=== PATIENT | male | born 1975 | race African-American/Black ===

== ENCOUNTER 2017-08-31 09:51 | Emergency (ER) | payer OTHER ==
[2017-08-31 09:57] VITALS: BP 148/84; PULSE 79; TEMP 98.9; BMI 32.8
[2017-08-31] MEDS ORDERED: ALBUTEROL SO4 2.5/IPRATROPIUM 0.5 INH SOL 3 ML VIAL.NEB. NEB ONE ×2 (10:45→10:49)
--- NOTE | 2017-08-31 10:49 | PDOC ---
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 Has taken an aspirin, but no other medications. Has not sought medical attention for these complaints. States has had a Proventil pump in the past but has never been diagnosed with asthma, had an episode of SVT in the spring and thinks may have been related to diet and over stimulants and alcohol but was never given definite diagnosis. Is not taking any medications but has been talked about antihypertensive. One cigarette daily but denies any other drug use besides alcohol and that is not a regular Timing/Duration: reports: changing over time, intermittent Severity: reports: mild Associated Symptoms: reports: chest pain/soreness (to left shoulder and upper arm/ deltoid area- worse with movement and reproducable ). denies: facial pain , fever/chills, nasal drainage Past History - Travel Traveled outside of the country in the last 30 days: No Close contact w/someone who was outside of country & ill: No - Past Medical History Allergies/Adverse Reactions: Allergies Allergy/AdvReac Type Severity Reaction Status Date / Time codeine Allergy Verified 08/31/17 09:57 Home Medications: Ambulatory Orders Aspirin [ASA -] 81 mg PO DAILY #30 tab.chew 03/21/16 Diltiazem Cd [Cardizem Cd -] 120 mg PO DAILY #30 cap.cd.24h 03/21/16 Albuterol 0.083% Nebulizer Sylvia [Ventolin 0.083% Nebulizer Soln -] 1 neb NEB Q4H PRN #30 vial 08/31/17 Azithromycin [Zithromax -] 250 mg PO UTDICT #6 tab 08/31/17 Cardiac Disorders: Yes (SVT) Hypercholesterolemia: (BORDERLINE) - Surgical History Abdominal Surgery: Yes (INTESTINE SX) - Immunization History Immunization Up to Date: Yes - Suicide/Smoking/Psychosocial Hx Smoking History: Current some day smoker Have you smoked in the past 12 months: Yes Number of Cigarettes Smoked Daily: 1 Information on smoking cessation initiated: No 'Breaking Loose' booklet given: 03/21/16 Hx Alcohol Use: Yes (OCCASIONALLY) Drug/Substance Use Hx: No Respiratory Specific PMHX - Complaint Specific PMHX Bronchitis: No Pneumonia: No Review of Systems - Review of Systems Able to Perform ROS?: Yes Is the patient limited Iranian proficient: Yes Constitutional: Yes: Symptoms Reported, See HPI, Chills, Fever, Loss of Appetite , Malaise HEENTM: Yes: See HPI. No: Symptoms Reported Respiratory: Yes: Symptoms reported, See HPI, Cough, Wheezing Cardiac (ROS): No: Symptoms Reported ABD/GI: No: Symptoms Reported Musculoskeletal: Yes: See HPI, Joint Pain, Muscle Pain (left deltoid/ shoulder capsule ). No: Symptoms Reported Integumentary: Yes: Symptoms Reported, See HPI Neurological: Yes: See HPI. No: Symptoms reported All Other Systems: Reviewed and Negative *Physical Exam - Vital Signs Last Vital Signs Temp Pulse Resp BP Pulse Ox 98.9 F 79 18 148/84 98 08/31/17 09:53 08/31/17 09:53 08/31/17 09:53 08/31/17 09:53 08/31/17 09:53 - Physical Exam General Appearance: Yes: Nourished, Appropriately Dressed, Apparent Distress, Mild Distress HEENT: positive: BUFFY, Normal ENT Inspection, TMs Normal, Pharynx Normal ( whitish posterior sinus drainage, no redness or exudate noted to the tonsils), Rhinorrhea Neck: positive: Tender, Supple. negative: Lymphadenopathy (R), Lymphadenopathy (L) Respiratory/Chest: positive: Lungs Clear, Normal Breath Sounds, Wheezing. negative: Rales Cardiovascular: positive: Regular Rate Gastrointestinal/Abdominal: positive: Tender, Soft Musculoskeletal: positive: Normal Inspection. 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 However patient is a smoker therefore will treat bronchial cough with Zithromax and have follow-up with PMD this week. Also will treat musculoskeletal pain with NSAIDs and explained that multiple symptoms are associated with bronchitis , and after treatment of antibiotic if pain persists or worsens to return to emergency department follow-up with PMD *DC/Admit/Observation/Transfer Diagnosis at time of Disposition: Bronchitis - Discharge Dispostion Disposition: HOME Condition at time of disposition: Stable Admit: No - Prescriptions Prescriptions: Albuterol 0.083% Nebulizer Sylvia [Ventolin 0.083% Nebulizer Soln -] 1 neb NEB Q4H PRN #30 vial PRN Reason: Cough Azithromycin [Zithromax -] 250 mg PO UTDICT #6 tab - Referrals Referrals: Elizabeth Hughes MD [Primary Care Provider] - - Patient Instructions Printed Discharge Instructions: DI for Acute Bronchitis Additional Instructions: Rest, drink lots of fluids: Teas, water, soups, Pedialyte Saltwater gargles Steamy showers/seem to face break up mucus Avoid contact with others until fevers and cough resolved Lots of handwashing and good hygiene No smoking until cough is finished Continue [id number] medications for symptomatic relief Tylenol or Motrin for fever and pain Avoid heavy lifting and strenuous activity until shoulder and arm feels better Continue albuterol nebulizers every 4-6 hours for the next 2 days then as needed for continued cough Zithromax as directed Followup with private physician in one to 2 days as needed Call and make appointment with private physician for thorough physical exam and evaluation of blood pressure and other basic healthcare Return to emergency department for worsened symptoms, fevers, dehydration - Post Discharge Activity Forms/Work/School Notes: Back to Work
[2017-08-31] MEDS ORDERED: IBUPROFEN 600 MG TABLET (FP) PO ONE ×2 (11:49→12:01)
== END 2017-08-31 12:23 | disposition home or self-care (01) ==
LOC: JER 09:51 → JERFT 09:51
PROC: 3E0F7GC Introduction of Other Therapeutic Substance into Respiratory Tract, Via Natural or Artificial Opening (ICD-10-PCS; principal; 2017-08-31)
DX: J20.9 Acute bronchitis, unspecified (principal); F17.210 Nicotine dependence, cigarettes, uncomplicated; Z88.6 Allergy status to analgesic agent; Z79.82 Long term (current) use of aspirin
CPT/HCPCS: 71020-TC; 99281-25

== ENCOUNTER 2018-11-27 06:08 | Emergency (ER) | payer OTHER ==
--- NOTE | 2018-11-27 06:24 | PDOC ---
History of Present Illness - General Stated Complaint: VOMITING Time Seen by Provider: 11/27/18 06:24 History Source: Patient Exam Limitations: No Limitations - History of Present Illness Initial Comments: 11/27/18 06:26 43 year old male with PMH previous atrial fibrillation, pancreatitis secondary to ETOH presented to ED for fever 102F associated with body aches, clear productive cough, chest tightness with inspiration, nausea, vomiting. Positive sick contacts with similar symptoms. Pt stated last drink was x5 days ago. Pt denied every day drinking. Past History - Past Medical History Allergies/Adverse Reactions: Allergies Allergy/AdvReac Type Severity Reaction Status Date / Time codeine Allergy Verified 11/27/18 06:40 Cardiac Disorders: Yes (SVT, afib?) COPD: No Hypercholesterolemia: (BORDERLINE) - Surgical History Abdominal Surgery: Yes (INTESTINE SX) - Immunization History Immunization Up to Date: Yes - Suicide/Smoking/Psychosocial Hx Smoking History: Former smoker Have you smoked in the past 12 months: Yes Number of Cigarettes Smoked Daily: 1 'Breaking Loose' booklet given: 03/21/16 Hx Alcohol Use: Yes (OCCASIONALLY) Drug/Substance Use Hx: No Review of Systems - Review of Systems Able to Perform ROS?: Yes Comments:: 11/27/18 06:27 General: admitted to fever, chills, generalized weakness. HEENT: denied sore throat, rhinorrhea, ear pain. Heart: admitted to pleuritic chest pain. denied palpitations, syncope, lower extremity swelling, diaphoresis. Respiratory: cough, sputum production. denied shortness of breath, hemoptysis. Abdomen: admitted to nausea, vomiting. denied abdominal pain, diarrhea, constipation, blood in stool. : denied dysuria, increased urinary frequency, hematuria, urinary incontinence , flank pain. Back: denied back pain. Musculoskeletal: admitted to body aches. denied joint pain, joint swelling. Neurological: admitted to headache. denied dizziness, numbness, tingling, weakness. Skin: denied rash, laceration, abrasion. *Physical Exam - Physical Exam Comments: 11/27/18 06:29 Constitutional: Well-nourished, Well-developed, appearing stated age. HEENT: head is normocephalic, atraumatic. EOMI. PERRLA. Neck: supple. Full ROM. Heart: regular rhythm. no murmurs, rubs or gallops. Lungs: clear to auscultation bilaterally. no crackles, rhonchi or wheezing. no stridor. Abdomen: soft, nontender. normal bowel sounds. no rebound, guarding, masses. Extremities: Peripheral pulses intact. No lower extremity edema. Neurological: CN 2-12 grossly intact. Moves all four extremities. Psych: awake, alert, oriented x3. Follows commands. Answers questions appropriately. ED Treatment Course - LABORATORY CBC & Chemistry Diagram: 11/27/18 07:10 11/27/18 07:10 Medical Decision Making - Medical Decision Making 11/27/18 06:29 43 year old male with PMH previous atrial fibrillation, pancreatitis secondary to ETOH presented to ED for fever 102F associated with body aches, clear productive cough, chest tightness with inspiration, nausea, vomiting. Initial Vital Signs Temp Pulse Resp BP Pulse Ox 99.9 F H 85 20 124/65 96 11/27/18 06:37 11/27/18 06:37 11/27/18 06:37 11/27/18 06:37 11/27/18 06:37 Febrile. No tachycardia. No tachypnea. Normal bood pressure. No hypoxia on room air. Labs ordered: CBC, CMP, influenza Imaging ordered: CXR Medications ordered: tylenol, zofran, pepcid, normal saline 1000 cc bolus EKG performed at 0634: rate 87, regular rhythm, normal axis, normal intervals, nonspecific ST changes. 11/27/18 07:10 Pt signed out to Dr. Andersen. *DC/Admit/Observation/Transfer Diagnosis at time of Disposition: Viral syndrome - Discharge Dispostion Disposition: HOME Condition at time of disposition: Good - Referrals Referrals: Elizabeth Hughes MD [Primary Care Provider] - - Patient Instructions Printed Discharge Instructions: DI for Viral Upper Respiratory Infection -- Adult Additional Instructions: You were seen in the ER today for fever, cough, and vomiting. The results of your labs and imaging today were normal. Please follow-up with your primary care doctor within 1-2 days to discuss your visit and make sure your symptoms have improved. Please return to the ER if you have any worsening pain, development of fevers or chills, loss of consciousness, inability to tolerate food or fluids, or any other concerns. - Post Discharge Activity
[2018-11-27] MEDS ORDERED: FAMOTIDINE 20 MG/50 ML IVPB 20 MG/50 ML MG IVPB ONE (06:25)
[2018-11-27] MEDS ORDERED: ONDANSETRON 4 MG/2 ML VIAL IVPUSH ONE (06:25)
[2018-11-27] MEDS ORDERED: SODIUM CHLORIDE 1,000 ML IV STA (06:25)
[2018-11-27] MEDS ORDERED: ACETAMINOPHEN 1000 MG/100 ML VIAL (NON FORMULARY) IVPB ONE (06:25)
[2018-11-27 06:39] VITALS: TEMP 99.9; BMI 67.6
--- NOTE | 2018-11-27 06:57 | PDOC ---
Attending Attestation - Resident Resident Name: Guerline Roman - ED Attending Attestation I have performed the following: I have examined & evaluated the patient, The case was reviewed & discussed with the resident, I agree w/resident's findings & plan, Exceptions are as noted - HPI HPI: 11/27/18 06:53 43M here with several days of fevers measured to 102 Tmax, chills, productive cough, n/v nbnb, several episodes of watery stool. +sick contacts at home - Physicial Exam PE: 11/27/18 06:55 Patient appears very uncomfortable on initial exam, AOx3 NCAT, PERRL Neck supple LCTAB Abd soft, diffusely tender, no guarding, no rebound CARL - Medical Decision Making 11/27/18 06:56 Likely viral syndrome, consider pna, AGE f/u labs symptomatic tx re-eval
--- NOTE | 2018-11-27 07:12 | PDOC ---
*Physical Exam - Vital Signs Last Vital Signs Temp Pulse Resp BP Pulse Ox 99.9 F H 85 20 124/65 96 11/27/18 06:37 11/27/18 06:37 11/27/18 06:37 11/27/18 06:37 11/27/18 06:37 ED Treatment Course - LABORATORY CBC & Chemistry Diagram: 11/27/18 07:10 11/27/18 07:10 Medical Decision Making - Medical Decision Making Pt was signed out to me by resident Dr. Roman, who explained the presentation, ED course, any pending results, and needed interventions. Pending results include labs and chest x-ray. Pt is currently receiving fluids and is lying comfortably. 11/27/18 07:24 CBC: no increased WBC, neutrophilic predominance. 11/27/18 07:55 CMP and lipase WNL. Pt will be sent for chest x-ray. 11/27/18 08:20 Influenza negative. Pending x-ray. 11/27/18 08:33 Chest x-ray shows no acute pathology. Considering normal lab results and imaging, pt can be discharged to home with follow-up. Pt advised to follow-up with PCP in 1-2 days. Strict return precautions provided with pt understanding. 11/27/18 08:49 *DC/Admit/Observation/Transfer Diagnosis at time of Disposition: Viral syndrome - Discharge Dispostion Disposition: HOME Condition at time of disposition: Good Decision to Admit order: No - Referrals Referrals: Elizabeth Hughes MD [Primary Care Provider] - - Patient Instructions Printed Discharge Instructions: DI for Viral Upper Respiratory Infection -- Adult Additional Instructions: You were seen in the ER today for fever, cough, and vomiting. The results of your labs and imaging today were normal. Please follow-up with your primary care doctor within 1-2 days to discuss your visit and make sure your symptoms have improved. Please return to the ER if you have any worsening pain, development of fevers or chills, loss of consciousness, inability to tolerate food or fluids, or any other concerns. - Post Discharge Activity
[2018-11-27 07:43] LABS: BASO % 0.2 % (0-2.0); EOS % 0.1 % (0-4.5); HEMATOCRIT 39.5 % (35.4-49); HEMOGLOBIN 12.9 GM/dL (11.7-16.9); LYMPH % 4.8 % (8-40); MCH 28.4 pg (25.7-33.7); MCHC 32.7 g/dl (32.0-35.9); MEAN PLT VOLUME 9.7 fl (7.5-11.1); NEUT % 85.9 % (42.8-82.8); PLATELET COUNT 204 K/MM3 (134-434); RBC 4.54 M/mm3 (4.00-5.60); RDW 12.7 % (11.9-15.9); WHITE BLOOD COUNT 5.3 K/mm3 (4.0-10.0)
[2018-11-27 08:02] LABS: ALBUMIN 4.2 g/dl (3.4-5.0); ALK PHOS 110 U/L (45-117); ANION GAP 7 MMOL/L (8-16); BILIRUBIN,TOTAL 0.3 mg/dL (0.2-1); BLOOD UREA NITROGEN 14 mg/dL (7-18); CALCIUM 8.8 mg/dL (8.5-10.1); CHLORIDE 103 mmol/L (98-107); CO2 26 mmol/L (21-32); CREATININE 1.1 mg/dL (0.55-1.3); GLUCOSE,RANDOM 105 mg/dL (74-106); LIPASE 127 U/L (73-393); SGOT/AST 26 U/L (15-37); SGPT/ALT 29 U/L (13-61); SODIUM 137 mmol/L (136-145); TOT PROT 7.6 g/dl (6.4-8.2)
[2018-11-27 09:09] VITALS: BP 122/75; PULSE 65
--- NOTE | 2018-11-27 09:09 | EKG ---
Test Reason : Blood Pressure : / mmHG Vent. Rate : 087 BPM Atrial Rate : 087 BPM P-R Int : 148 ms QRS Dur : 086 ms QT Int : 358 ms P-R-T Axes : 062 050 016 degrees QTc Int : 430 ms POOR DATA QUALITY, INTERPRETATION MAY BE ADVERSELY AFFECTED NORMAL SINUS RHYTHM NONSPECIFIC ST AND T WAVE ABNORMALITY ABNORMAL ECG WHEN COMPARED WITH ECG OF 29-JUN-2018 11:58, NONSPECIFIC T WAVE ABNORMALITY NOW EVIDENT IN ANTEROLATERAL LEADS Confirmed by THIEN SIMPSON, ALYCIA ([id number]) on 11/27/2018 9:09:12 AM Referred By: Confirmed By:ALYCIA NEUMANN MD
== END 2018-11-27 09:09 | disposition home or self-care (01) ==
LOC: JER 06:08
PROC: 3E033GC Introduction of Other Therapeutic Substance into Peripheral Vein, Percutaneous Approach (ICD-10-PCS; principal; 2018-11-27)
PROC: 3E033GC Introduction of Other Therapeutic Substance into Peripheral Vein, Percutaneous Approach (ICD-10-PCS; 2018-11-27)
PROC: 3E033NZ Introduction of Analgesics, Hypnotics, Sedatives into Peripheral Vein, Percutaneous Approach (ICD-10-PCS; 2018-11-27)
DX: B34.9 Viral infection, unspecified (principal)
CPT/HCPCS: 36415; 71046-TC-FY; 80053; 83690; 85025; 87804; 93005; 93010; 96365; 96375; 99282-25; J0131; J7030

== ENCOUNTER 2018-11-28 16:57 | Emergency (ER) | payer OTHER ==
[2018-11-28 17:09] VITALS: BMI 30.7
--- NOTE | 2018-11-28 17:47 | PDOC ---
History of Present Illness - History of Present Illness Initial Comments: The patient is a 43 year old male, with a significant past medical history of previous atrial fibrillation, pancreatitis secondary to ETOH, who presents to the emergency department with 3 days of flu-like symptoms. Patient states that he has been experiencing nausea, vomiting, diarrhea, generalized weakness, productive cough (clear sputum), and hot flashes & cold sweats. He states that he hasnt been able to hold anything down including liquids. He also reports associated dizziness and confusion. He complains of a headache that he says has lasts for months. He denies any recent chest pain or shortness of breath. He denies any recent dysuria, frequency, urgency or hematuria. Allergies: codeine Social History: Some day smoker. Social EtOH use. Denies recreational drug use. Primary Care Physician: Elizabeth Hughes 11/28/18 18:12 <Carmen Lorenzo - Last Filed: 11/28/18 18:20> <Tyrel Vernon - Last Filed: 11/28/18 19:59> - General Chief Complaint: Nausea/Vomiting Stated Complaint: HEADACHE, FEVER, VOMITING Time Seen by Provider: 11/28/18 17:26 Past History <Carmen Lorenzo - Last Filed: 11/28/18 18:20> - Past Medical History Cardiac Disorders: Yes (SVT, afib?) COPD: No Hypercholesterolemia: (BORDERLINE) - Surgical History Abdominal Surgery: Yes (INTESTINE SX) - Immunization History Immunization Up to Date: Yes - Suicide/Smoking/Psychosocial Hx Smoking History: Current some day smoker Have you smoked in the past 12 months: Yes Number of Cigarettes Smoked Daily: 1 Information on smoking cessation initiated: No 'Breaking Loose' booklet given: 03/21/16 Hx Alcohol Use: Yes (SOCIALLY) Drug/Substance Use Hx: No <Tyrel Vernon - Last Filed: 11/28/18 19:59> - Past Medical History Allergies/Adverse Reactions: Allergies Allergy/AdvReac Type Severity Reaction Status Date / Time codeine Allergy Verified 11/28/18 17:03 Home Medications: Ambulatory Orders Ondansetron [Zofran Odt -] 4 mg SL TID #21 od.tablet 11/28/18 Review of Systems - Review of Systems Comments:: Constitutional: +chills ENT: no sore throat Cardiovascular: no palpitations; no chest pain Pulmonary: + productive cough (clear sputum); no trouble breathing Gastrointestinal: + nausea; + vomiting; + diarrhea Genitourinary: No urinary problems; no hematuria Skin: No rash Lymph system: No swollen glands Musculoskeletal: No joint swelling Neurological: + generalized weakness; No numbness; +Headache; no vertigo; + lightheadedness Psychiatric:No anxiety; no depression <Carmen Lorenzo - Last Filed: 11/28/18 18:20> *Physical Exam - Vital Signs Last Vital Signs Temp Pulse Resp BP Pulse Ox 98.1 F 79 18 117/80 98 11/28/18 17:05 11/28/18 17:05 11/28/18 17:05 11/28/18 17:05 11/28/18 17:05 - Physical Exam Comments: Vitals: Triage Vital signs reviewed General Appearance: + uncomfortable appearing. well nourished well developed Head: Atraumatic Eyes: Pupils equal reactive round, extraocular movement intact Ears: TMs normal bilaterally Nose: Nares patent bilaterally; no nasal congestion Throat: Posterior oropharynx without erythema, mucous membranes moist Neck: Supple; No Nuchal rigidity Chest Wall: Nontender Cardiac: Regular rate and rhythm, no murmurs, no rubs, no gallops Lungs: Clear to auscultation bilateral, good air movement bilaterally Abdomen: Soft, non distended, normal bowel sounds, non tender to palpation Extremities: Full range of motion to all extremities, no cyanosis, clubbing, or edema Skin: Warm and dry, no rashes or lesions, no rash, no petechiae Neuro: AOX3; Cranial Nerves 2-12 grossly intact, Strength intact to all extremities, Sensation intact to all extremities, gait normal Psych: Normal mood, normal affect 11/28/18 18:22 <Carmen Lorenzo - Last Filed: 11/28/18 18:20> - Vital Signs Last Vital Signs Temp Pulse Resp BP Pulse Ox 98.1 F 79 18 117/80 98 11/28/18 17:05 11/28/18 17:05 11/28/18 17:05 11/28/18 17:05 11/28/18 17:05 <Tyrel Vernon - Last Filed: 11/28/18 19:59> Moderate Sedation - Procedure Monitoring Vital Signs: Procedure Monitoring Vital Signs Temperature 98.1 F 11/28/18 17:05 Pulse Rate 79 11/28/18 17:05 Respiratory Rate 18 11/28/18 17:05 Blood Pressure 117/80 11/28/18 17:05 O2 Sat by Pulse Oximetry (%) 98 11/28/18 17:05 <Carmen Lorenzo - Last Filed: 11/28/18 18:20> - Procedure Monitoring Vital Signs: Procedure Monitoring Vital Signs Temperature 98.1 F 11/28/18 17:05 Pulse Rate 79 11/28/18 17:05 Respiratory Rate 18 11/28/18 17:05 Blood Pressure 117/80 11/28/18 17:05 O2 Sat by Pulse Oximetry (%) 98 11/28/18 17:05 <Tyrel Vernon - Last Filed: 11/28/18 19:59> ED Treatment Course - LABORATORY CBC & Chemistry Diagram: 11/28/18 18:30 11/28/18 18:30 <Tyrel Vernon - Last Filed: 11/28/18 19:59> Medical Decision Making - Medical Decision Making 11/28/18 19:58 Reevaluation patient feels much better now tolerating fluids repeat abdominal exam benign Laboratory analysis reviewed there are no gross abnormalities History examination given three-day history of nausea vomiting and diarrhea is most consistent with gastritis at this time He is negative for influenza He will be sent prescribed a prescription for Zofran 24 hours of fluids only medical progress to small amounts of food He will follow up with his doctor this week. Findings, need follow-up and strict return instructions discussed patient. <Tyrel Vernon - Last Filed: 11/28/18 19:59> *DC/Admit/Observation/Transfer - Attestations Scribe Attestion: 11/28/18 18:21 Documentation prepared by Carmen Lorenzo, acting as medical records coder for Tyrel Vernon MD. <Carmen Lorenzo - Last Filed: 11/28/18 18:20> - Discharge Dispostion Decision to Admit order: No <Tyrel Vernon - Last Filed: 11/28/18 19:59> Diagnosis at time of Disposition: Gastroenteritis - Discharge Dispostion Disposition: HOME - Referrals Referrals: Elizabeth Hughes MD [Primary Care Provider] - - Patient Instructions Printed Discharge Instructions: DI for Nausea -- Adult, DI for Vomiting -- Adult Additional Instructions: Alternate Tylenol and Motrin as directed on package as in for fever. Drink plenty of fluids. Zofran as prescribed. Return to the emergency department unable to tolerate fluids any severe abdominal pain or for any concerns. Follow- up with your doctor next week. - Post Discharge Activity
[2018-11-28] MEDS ORDERED: SODIUM CHLORIDE 0.9% 1000 ML INFUS.BAG IV ONE (18:01)
[2018-11-28] MEDS ORDERED: ONDANSETRON 4 MG/2 ML VIAL IVPUSH ONE (18:01)
[2018-11-28] MEDS ORDERED: ACETAMINOPHEN 1000 MG/100 ML VIAL (NON FORMULARY) IVPB ONE (18:01)
[2018-11-28] MEDS ORDERED: METOCLOPRAMIDE HCL INJECTION 10 MG/2 ML VIAL IVPB ONE (18:01)
[2018-11-28] MEDS ORDERED: ACETAMINOPHEN INJECTION 100 ML IVPB ONE (18:06)
[2018-11-28] MEDS ORDERED: METOCLOPRAMIDE HCL INJECTION 10 MG/2 ML VIAL ONE (18:06)
[2018-11-28] MEDS ORDERED: ONDANSETRON 4 MG/2 ML VIAL ONE (18:06)
[2018-11-28 18:36] LABS: BASO % 0.3 % (0-2.0); HEMOGLOBIN 13.2 GM/dL (11.7-16.9); LYMPH % 13.5 % (8-40); MCH 29.7 pg (25.7-33.7); MCHC 34.8 g/dl (32.0-35.9); MEAN CELL VOLUME 85.2 fl (80-96); MEAN PLT VOLUME 9.7 fl (7.5-11.1); MONO % 7.3 % (3.8-10.2); NEUT % 78.9 % (42.8-82.8); PLATELET COUNT 178 K/MM3 (134-434); RBC 4.46 M/mm3 (4.00-5.60); RDW 12.6 % (11.9-15.9); WHITE BLOOD COUNT 3.9 K/mm3 (4.0-10.0)
[2018-11-28 19:06] LABS: ALBUMIN 3.6 g/dl (3.4-5.0); ALK PHOS 98 U/L (45-117); ANION GAP 7 MMOL/L (8-16); BILIRUBIN,TOTAL 0.4 mg/dL (0.2-1); BLOOD UREA NITROGEN 12 mg/dL (7-18); CHLORIDE 98 mmol/L (98-107); CO2 27 mmol/L (21-32); GLUCOSE,RANDOM 103 mg/dL (74-106); POTASSIUM 3.8 mmol/L (3.5-5.1); SGOT/AST 40 U/L (15-37); SGPT/ALT 35 U/L (13-61); SODIUM 132 mmol/L (136-145)
[2018-11-28 19:29] VITALS: BP 118/63; PULSE 74; TEMP 99.9
== END 2018-11-28 20:25 | disposition home or self-care (01) ==
LOC: JER 16:57
PROC: 3E033NZ Introduction of Analgesics, Hypnotics, Sedatives into Peripheral Vein, Percutaneous Approach (ICD-10-PCS; principal; 2018-11-28)
PROC: 3E033GC Introduction of Other Therapeutic Substance into Peripheral Vein, Percutaneous Approach (ICD-10-PCS; 2018-11-28)
PROC: 3E033GC Introduction of Other Therapeutic Substance into Peripheral Vein, Percutaneous Approach (ICD-10-PCS; 2018-11-28)
PROC: 3E033GC Introduction of Other Therapeutic Substance into Peripheral Vein, Percutaneous Approach (ICD-10-PCS; 2018-11-28)
DX: K52.9 Noninfective gastroenteritis and colitis, unspecified (principal)
CPT/HCPCS: 36415; 80053; 85025; 87804; 96374; 96375; 99282-25; J0131; J7030

== ENCOUNTER 2021-03-16 04:14 | Day surgery (SDC) | payer OTHER ==
[2021-03-15 13:25] VITALS: BMI 34.2
[2021-03-16] MEDS ORDERED: DEXAMETHASONE SOD PHOSPHATE/PF 10 MG/ML SDV ONE (07:28)
[2021-03-16] MEDS ORDERED: LIDOCAINE 1% P/F 10 MG/ML VIAL INF ONE (13:52)
[2021-03-16] MEDS ORDERED: IOHEXOL 180 MG/1 ML ML IJ ONE (13:54)
[2021-03-16] MEDS ORDERED: DEXAMETHASONE SOD PHOSPHATE 10 MG/1 ML VIAL IM ONE (13:56)
[2021-03-16 14:37] VITALS: BP 132/82; PULSE 80; TEMP 98.2
== END 2021-03-16 14:45 | disposition home or self-care (01) ==
LOC: JASU-SURG 04:14
PROVIDERS: ATTEND Pain Medicine Pain Medicine
PROC: B01BYZZ Fluoroscopy of Spinal Cord using Other Contrast (ICD-10-PCS; 2021-03-16)
PROC: 3E0R33Z Introduction of Anti-inflammatory into Spinal Canal, Percutaneous Approach (ICD-10-PCS; principal; 2021-03-16 13:30)
DX: M54.12 Radiculopathy, cervical region (principal)
CPT/HCPCS: 76000-TC-FY; J1100

== ENCOUNTER 2021-04-11 10:54 | Day surgery (SDC) | payer OTHER ==
[2021-04-11] MEDS ORDERED: BUPIVACAINE HCL/PF 2.5 MG/ML - 30 ML VIAL IJ ONE (11:10)
[2021-04-11] MEDS ORDERED: BUPIVACAINE HCL/EPINEPHRINE/PF 30 ML VIAL IJ ONE (11:10)
[2021-04-11 11:19] VITALS: BMI 33.9
[2021-04-11] MEDS ORDERED: MIDAZOLAM HCL 2 MG/2 ML SINGLE DOSE VIAL ONE ×2 (11:59)
[2021-04-11] MEDS ORDERED: fentaNYL CITRATE 250 MCG/5 ML VIAL ONE ×2 (11:59→12:22)
[2021-04-11] MEDS ORDERED: PROPOFOL 20 ML ONE ×4 (11:59→12:22)
[2021-04-11] MEDS ORDERED: SUCCINYLCHOLINE CHLORIDE 200 MG/10 ML SYRINGE ONE ×2 (12:02→12:23)
[2021-04-11] MEDS ORDERED: ROCURONIUM BROMIDE 50 MG/5 ML SYRINGE ONE ×2 (12:02→12:23)
[2021-04-11] MEDS ORDERED: ePHEDrine SULFATE 50 MG/1 ML AMPULE ONE (12:48)
[2021-04-11] MEDS ORDERED: HYDROmorphone HCl 2 MG/ML VIAL IVPUSH ONE (16:12)
[2021-04-11] MEDS ORDERED: ONDANSETRON 4 MG/2 ML VIAL IVPUSH PRN (16:12)
[2021-04-11] MEDS ORDERED: oxyCODONE HCL 5 MG TABLET PO PRN ×3 (16:13→16:15)
[2021-04-11] MEDS ORDERED: LACTATED RINGERS SOLUTION 1,000 ML IV SCH (16:15)
[2021-04-11] MEDS ORDERED: ACETAMINOPHEN 325 MG TABLET (FP) PO PRN (16:15)
[2021-04-11] MEDS: CEFAZOLIN 2 GM/D5W 2 GM/50 ML ML IVPB SCH (20:24)
[2021-04-11] MEDS ORDERED: oxyCODONE HCL 10 MG SUSTAINED ACTING TABLET PO SCH (22:00)
[2021-04-12] MEDS: CEFAZOLIN 2 GM/D5W 2 GM/50 ML ML IVPB SCH (01:16)
[2021-04-12 02:23] VITALS: BP 140/76; PULSE 94; TEMP 99.1
== END 2021-04-12 02:15 | disposition home or self-care (01) ==
LOC: FASU 10:54 → FM/S 18:29 → FASU 04-12 02:15
PROVIDERS: ATTEND Orthopaedic Surgery
PROC: 0LQ30ZZ Repair Right Upper Arm Tendon, Open Approach (ICD-10-PCS; principal; 2021-04-11 12:00)
DX: S46.211A Strain of muscle, fascia and tendon of other parts of biceps, right arm, initial encounter (principal); X58.XXXA Exposure to other specified factors, initial encounter; Y92.9 Unspecified place or not applicable; Y93.9 Activity, unspecified
CPT/HCPCS: 76000-TC-FY; 94760

== ENCOUNTER 2021-07-22 11:05 | Emergency (ER) | payer OTHER ==
[2021-07-22] MEDS ORDERED: SODIUM CHLORIDE 0.9% 500 ML INFUS.BAG IV ONE (11:23)
[2021-07-22 11:32] VITALS: BP 135/93; PULSE 79; TEMP 98.9; BMI 33.5
[2021-07-22 12:18] LABS: MEAN PLT VOLUME 9.6 fl (7.5-11.1)
[2021-07-22 12:24] LABS: ALBUMIN 4.4 g/dl (3.4-5.0); BILIRUBIN,TOTAL 0.5 mg/dl (0.2-1); CREATININE 0.9 mg/dl (0.55-1.3); TOT PROT 7.1 g/dl (6.4-8.2)
[2021-07-22 12:26] LABS: BASO % 0.6 % (0-2.0); EOS % 0.2 % (0-4.5); HEMATOCRIT 39.7 % (35.4-49); LYMPH % 19.8 % (8-40); MCH 28.1 pg (25.7-33.7); MCHC 32.7 g/dl (32.0-35.9); MONO % 6.4 % (3.8-10.2); PLATELET COUNT 266 10^3/uL (134-434); RBC 4.62 M/mm3 (4.00-5.60); RDW 12.1 % (11.9-15.9); WHITE BLOOD COUNT 6.1 K/mm3 (4.0-10.8)
== END 2021-07-22 13:55 | disposition home or self-care (01) ==
LOC: FER 11:05
DX: R53.81 Other malaise (principal); M62.82 Rhabdomyolysis
CPT/HCPCS: 36415; 80053; 81003; 82550; 82553; 84443; 84484; 85025; 87086; 93005; 99284-25; C9803; U0003; U0005

== ENCOUNTER 2022-05-29 15:08 | Emergency (ER) | payer OTHER ==
[2022-05-29 15:40] VITALS: BP 126/88; PULSE 92; TEMP 99.1; BMI 34.2
[2022-05-29 16:41] LABS: INR 1.07 (0.83-1.09); PROTHROMBIN TIME (PATIENT) 12.3 SEC (9.7-13.0)
[2022-05-29 16:44] LABS: ACTIVATED PTT 32.9 SECONDS (25.2-36.5)
[2022-05-29 16:54] LABS: BILIRUBIN,TOTAL 0.5 mg/dl (0.2-1); CREATININE 1.2 mg/dl (0.55-1.3)
[2022-05-29 16:59] LABS: HEMATOCRIT 38.8 % (35.4-49); HEMOGLOBIN 13.8 G/dL (11.7-16.9); MCH 30.8 pg (25.7-33.7); MCHC 35.5 g/dl (32.0-35.9); MEAN CELL VOLUME 86.6 fl (80-96); MEAN PLT VOLUME 9.2 fl (7.5-11.1); PLATELET COUNT 221.1 10^3/uL (134-434); RBC 4.48 10^6/uL (4.00-5.60); RDW 13.2 % (11.9-15.9); WHITE BLOOD COUNT 4.3 10^3/uL (4.0-10.8)
[2022-05-29] MEDS ORDERED: KETOROLAC TROMETHAMINE 15 MG/ML VIAL IVPUSH ONE (19:09)
[2022-05-29] MEDS ORDERED: KETOROLAC TROMETHAMINE 15 MG/ML VIAL ONE (19:27)
[2022-05-29 19:44] LABS: PLATELET ESTIMATE ADEQUATE
== END 2022-05-29 20:38 | disposition home or self-care (01) ==
LOC: FER 15:08
PROC: 3E033GC Introduction of Other Therapeutic Substance into Peripheral Vein, Percutaneous Approach (ICD-10-PCS; principal; 2022-05-29)
DX: S29.011A Strain of muscle and tendon of front wall of thorax, initial encounter (principal); Y99.8 Other external cause status
CPT/HCPCS: 36415; 71045-TC-FY; 71275-TC; 80053; 84484; 85025; 85610; 85730; 93005; 93308; 99285-25; Q9967

== ENCOUNTER 2023-12-23 13:01 | Inpatient (IN) | payer OTHER ==
[2023-12-23 13:11] VITALS: BMI 34.8
[2023-12-23] MEDS ORDERED: KETOROLAC TROMETHAMINE 15 MG/ML VIAL IM ONE (13:23)
[2023-12-23] MEDS ORDERED: KETOROLAC TROMETHAMINE 30 MG/1 ML VIAL ONE (13:55)
[2023-12-23] MEDS ORDERED: KETOROLAC TROMETHAMINE 30 MG/1 ML VIAL IVPUSH ONE (13:55)
[2023-12-23 14:51] LABS: PH,URINE 5.5 (5.0-8.0); URINE APPEARANCE CLEAR; URINE BILIRUBIN NEGATIVE (NEGATIVE); URINE COLOR YELLOW; URINE GLUCOSE (UA) NEGATIVE (NEGATIVE); URINE KETONE NEGATIVE (NEGATIVE); URINE LEUK ESTERASE NEGATIVE (NEGATIVE); URINE NITRITE NEGATIVE (NEGATIVE); URINE PROTEIN NEGATIVE (NEGATIVE); URINE UROBILINOGEN 0.2 mg/dL (0.2-1.0)
[2023-12-23 14:52] LABS: BASO % 0.7 % (0-2.0); EOS % 0.4 % (0-4.5); HEMATOCRIT 37.4 % (35.4-49); HEMOGLOBIN 12.3 GM/dL (11.7-16.9); LYMPH % 24.9 % (8-40); MCH 27.8 pg (25.7-33.7); MEAN CELL VOLUME 84.3 fl (80-96); MONO % 7.7 % (3.8-10.2); NEUT % 66.3 % (42.8-82.8); PLATELET COUNT 313 10^3/uL (134-434); RBC 4.44 M/mm3 (4.00-5.60); RDW 13.5 % (11.9-15.9); WHITE BLOOD COUNT 5.1 K/mm3 (4.0-10.0)
[2023-12-23 15:12] LABS: POTASSIUM 4.7 mmol/L (3.5-5.1)
[2023-12-23 15:14] LABS: ALBUMIN 4.1 g/dl (3.4-5.0); CALCIUM 9.2 mg/dL (8.5-10.1)
[2023-12-23 15:15] LABS: BLOOD UREA NITROGEN 14.9 mg/dL (7-18)
[2023-12-23 15:19] LABS: BILIRUBIN,TOTAL 0.5 mg/dL (0.2-1); TOT PROT 7.6 g/dl (6.4-8.2)
[2023-12-23] MEDS ORDERED: ACETAMINOPHEN 1000 MG/100 ML BAG IVPB PRN (18:25)
[2023-12-23] MEDS ORDERED: SODIUM CHLORIDE 1,000 ML IV SCH (18:30)
[2023-12-23] MEDS ORDERED: TAMSULOSIN HCL 0.4 MG CAP PO SCH (22:00)
[2023-12-24 07:22] LABS: POTASSIUM 4.3 mmol/L (3.5-5.1)
[2023-12-24 07:27] LABS: BLOOD UREA NITROGEN 15.8 mg/dL (7-18)
[2023-12-24 07:28] LABS: ALBUMIN 3.7 g/dl (3.4-5.0); BASO % 0.3 % (0-2.0); CALCIUM 8.6 mg/dL (8.5-10.1); EOS % 1.6 % (0-4.5); HEMATOCRIT 37.1 % (35.4-49); HEMOGLOBIN 12.1 GM/dL (11.7-16.9); MAGNESIUM 2.1 mg/dL (1.8-2.4); MCH 27.5 pg (25.7-33.7); MCHC 32.6 g/dl (32.0-35.9); MEAN CELL VOLUME 84.4 fl (80-96); MEAN PLT VOLUME 8.7 fl (7.5-11.1); MONO % 9.9 % (3.8-10.2); NEUT % 51.2 % (42.8-82.8); PLATELET COUNT 267 10^3/uL (134-434); RDW 13.2 % (11.9-15.9); WHITE BLOOD COUNT 3.8 K/mm3 (4.0-10.0)
[2023-12-24 07:30] LABS: PHOSPHOROUS 5.3 mg/dL (2.5-4.9)
[2023-12-24 07:31] LABS: TOT PROT 6.7 g/dl (6.4-8.2)
[2023-12-24 07:32] LABS: BILIRUBIN,TOTAL 0.3 mg/dL (0.2-1)
[2023-12-24] MEDS ORDERED: SUCCINYLCHOLINE CHLORIDE 200 MG/10 ML SYRINGE ONE (08:03)
[2023-12-24] MEDS ORDERED: PROPOFOL 40 ML ONE (08:07)
[2023-12-24] MEDS ORDERED: MIDAZOLAM HCL 2 MG/2 ML SINGLE DOSE VIAL ONE (08:21)
[2023-12-24] MEDS ORDERED: ONDANSETRON 4 MG/2 ML VIAL ONE (08:23)
[2023-12-24] MEDS ORDERED: ceFAZolin SODIUM 1 GM VIAL ONE (08:23)
[2023-12-24] MEDS ORDERED: LIDOCAINE HCL/PF 2% SDV 5ML VIAL ONE (08:23)
[2023-12-24] MEDS ORDERED: DEXAMETHASONE SOD PHOSPHATE 4 MG/1 ML VIAL ONE (08:23)
[2023-12-24] MEDS ORDERED: SODIUM CHLORIDE 0.9% P/F 10 ML VIAL IJ ONE (08:23)
[2023-12-24] MEDS ORDERED: ceFAZolin SODIUM 1 GM VIAL IVPB ONE ×2 (08:26)
[2023-12-24] MEDS ORDERED: TAMSULOSIN HCL 0.4 MG CAP PO SCH (08:30)
[2023-12-24] MEDS ORDERED: ACETAMINOPHEN INJECTION 100 ML IVPB ONE (08:37)
[2023-12-24] MEDS ORDERED: ONDANSETRON 4 MG/2 ML VIAL IVPUSH PRN (09:04)
[2023-12-24] MEDS ORDERED: LACTATED RINGERS SOLUTION 1,000 ML IV SCH (09:15)
[2023-12-24] MEDS ORDERED: ASPIRIN COATED 81 MG TABLET.EC PO SCH (10:00)
[2023-12-24 10:15] VITALS: TEMP 97.8
[2023-12-24 10:16] VITALS: RESP 18
[2023-12-24 11:29] VITALS: BP 142/99; PULSE 90
[2023-12-24] MEDS ORDERED: DOCUSATE SODIUM 100 MG CAPSULE (FP) PO SCH (14:00)
[2023-12-25] MEDS ORDERED: TAMSULOSIN HCL 0.4 MG CAP PO SCH (08:30)
== END 2023-12-24 11:55 | disposition home or self-care (01) | DRG 465 ==
LOC: JER 13:01 → JERBED 17:12
PROVIDERS: ADMIT Internal Medicine; ATTEND Nurse Practitioner Family
PROC: BT1FZZZ Fluoroscopy of Left Kidney, Ureter and Bladder (ICD-10-PCS; 2023-12-24)
PROC: 0T778DZ Dilation of Left Ureter with Intraluminal Device, Via Natural or Artificial Opening Endoscopic (ICD-10-PCS; principal; 2023-12-24 15:30)
DX: N13.2 Hydronephrosis with renal and ureteral calculous obstruction (principal); R10.9 Unspecified abdominal pain
CPT/HCPCS: 36415; 74176-TC; 76000-TC-FY; 80053; 81003; 83735; 84100; 85025; 85027; 86850; 86900; 86901; 87086; 94760; 99283-25; 99285-25; C1758; C2617; J0131

== ENCOUNTER 2024-01-12 11:50 | Day surgery (SDC) | payer OTHER ==
[2024-01-12 11:55] VITALS: BMI 34.8
[2024-01-12] MEDS ORDERED: ACETAMINOPHEN INJECTION 100 ML IVPB ONE ×2 (12:33→16:11)
[2024-01-12] MEDS: SODIUM CHLORIDE 0.9% 500 ML INFUS.BAG IV ONE (12:52)
[2024-01-12] MEDS: ACETAMINOPHEN 1000 MG/100 ML BAG IVPB ONE (12:52)
[2024-01-12 13:08] LABS: INR 1.1 (0.83-1.09); PROTHROMBIN TIME (PATIENT) 12.8 SEC (9.7-13.0)
[2024-01-12 13:09] LABS: EPI CELLS 17 /uL (0-25.1); HYALINE CASTS 1 /uL (0-3.1); PH,URINE 5.5 (5.0-8.0); URINE APPEARANCE CLOUDY; URINE BACTERIA 13 /uL (0-1359); URINE BILIRUBIN NEGATIVE (NEGATIVE); URINE COLOR YELLOW; URINE GLUCOSE (UA) NEGATIVE (NEGATIVE); URINE KETONE NEGATIVE (NEGATIVE); URINE LEUK ESTERASE 2+ (NEGATIVE); URINE NITRITE NEGATIVE (NEGATIVE); URINE PROTEIN 2+ (NEGATIVE); URINE RBC 4678 /uL (0-23.9); URINE UROBILINOGEN 0.2 mg/dL (0.2-1.0); URINE WBC 172 /uL (0-25.8)
[2024-01-12 13:10] LABS: BASO % 0.2 % (0-2.0); EOS % 1.4 % (0-4.5); HEMATOCRIT 40.8 % (35.4-49); HEMOGLOBIN 13.5 GM/dL (11.7-16.9); LYMPH % 26.2 % (8-40); MCH 27.9 pg (25.7-33.7); MEAN CELL VOLUME 84.5 fl (80-96); MEAN PLT VOLUME 8.8 fl (7.5-11.1); NEUT % 63.2 % (42.8-82.8); PLATELET COUNT 325 10^3/uL (134-434); RBC 4.82 M/mm3 (4.00-5.60); WHITE BLOOD COUNT 5.3 K/mm3 (4.0-10.0)
[2024-01-12 13:10] LABS: ACTIVATED PTT 34.7 SECONDS (25.2-36.5)
[2024-01-12 13:21] LABS: POTASSIUM 4.6 mmol/L (3.5-5.1)
[2024-01-12 13:24] LABS: ALBUMIN 3.9 g/dl (3.4-5.0); MAGNESIUM 2.3 mg/dL (1.8-2.4)
[2024-01-12 13:25] LABS: BLOOD UREA NITROGEN 15.6 mg/dL (7-18)
[2024-01-12 13:27] LABS: CREATININE 1.1 mg/dL (0.55-1.3)
[2024-01-12 13:29] LABS: BILIRUBIN,TOTAL 0.3 mg/dL (0.2-1); TOT PROT 7.8 g/dl (6.4-8.2)
[2024-01-12] MEDS ORDERED: ceFAZolin SODIUM 1 GM VIAL ONE (16:11)
[2024-01-12] MEDS ORDERED: DEXAMETHASONE SOD PHOSPHATE 4 MG/1 ML VIAL ONE (16:11)
[2024-01-12] MEDS ORDERED: ONDANSETRON 4 MG/2 ML VIAL ONE (16:11)
[2024-01-12] MEDS ORDERED: KETOROLAC TROMETHAMINE 30 MG/1 ML VIAL ONE (16:11)
[2024-01-12] MEDS ORDERED: SODIUM CHLORIDE 0.9% P/F 10 ML VIAL IJ ONE (16:11)
[2024-01-12] MEDS ORDERED: LIDOCAINE HCL/PF 2% SDV 5ML VIAL ONE (16:11)
[2024-01-12] MEDS ORDERED: MIDAZOLAM HCL 2 MG/2 ML SINGLE DOSE VIAL ONE (16:15)
[2024-01-12] MEDS ORDERED: PROPOFOL 20 ML ONE ×2 (16:17→17:38)
[2024-01-12] MEDS ORDERED: CEFTRIAXONE 1 GM/50 ML BAG ONE (16:19)
[2024-01-12] MEDS: CEFTRIAXONE 1,000 MG in DEXTROSE 5%-WATER - 50 ML IVPB ONE (16:28)
[2024-01-12] MEDS ORDERED: LACTATED RINGERS SOLUTION 1,000 ML IV SCH (18:30)
[2024-01-12 19:02] VITALS: BP 142/80; PULSE 99; RESP 18; TEMP 97.9
== END 2024-01-12 19:55 | disposition home or self-care (01) ==
LOC: JER 11:50 → JASUSAT 16:13 → J8W 19:00 → JASUSAT 19:55
PROVIDERS: ATTEND Urology
PROC: 3E03329 Introduction of Other Anti-infective into Peripheral Vein, Percutaneous Approach (ICD-10-PCS; principal; 2024-01-12 17:15)
PROC: 3E033GC Introduction of Other Therapeutic Substance into Peripheral Vein, Percutaneous Approach (ICD-10-PCS; 2024-01-12 17:15)
DX: T83.84XA Pain due to genitourinary prosthetic devices, implants and grafts, initial encounter (principal); R10.33 Periumbilical pain; R11.10 Vomiting, unspecified; R19.7 Diarrhea, unspecified; N13.30 Unspecified hydronephrosis
CPT/HCPCS: 36415; 74176-TC; 76000-TC-FY; 80053; 81003; 83690; 83735; 85025; 85610; 85730; 86850; 86900; 86901; 87086; 93005; 93010; 94760; 99285-25; C1747; C2617; J0131